=== PATIENT | female | born 1985 | race African-American/Black ===

== ENCOUNTER 2023-08-31 17:58 | Emergency (ER) | payer OTHER, SELFPAY ==
[2023-08-31 18:02] VITALS: BP 161/108
[2023-08-31 18:25] LABS: % Basophils 0.7 % (0-2); % Eosinophils 3.1 % (0-6); % Immature Granulocytes 0.5 % (0-0.5); % Lymphocytes 42.6 % (20.5-51.1); % Monocytes 5.4 % (1.7-9.3); % Neutrophils 47.7 % (42.2-75.2); Absolute Basophils 0.1 10^3/uL (0-0.2); Absolute Eosinophils 0.3 10^3/uL (0-0.7); Absolute Lymphocytes 3.5 10^3/uL (1.2-3.4); Absolute Monocytes 0.4 10^3/uL (0.1-0.6); Absolute Neutrophils 3.9 10^3/uL (1.4-6.5); Hematocrit 33.9 % (37.0-47.0); Hemoglobin 11.3 g/dL (12.0-16.0); Mean Corp Hgb Conc. 33.3 g/dL (33.0-37.0); Mean Corpuscular Hgb 28.1 pg (27.0-31.0); Mean Corpuscular Volume 84.3 fL (81.0-99.0); Mean Platelet Volume 9.1 fL (7.4-10.4); Nucleated Red Blood Cells % 0 %; Platelet Count 321 10^3/uL (130-400); Red Blood Cell Count 4.02 10^6/uL (4.20-5.40); Red Cell Dist. Width 15.1 % (11.5-14.5); White Blood Cell Count 8.2 10^3/uL (4.8-10.8)
[2023-08-31 18:26] VITALS: BP 147/63
[2023-08-31 18:38] LABS: Urine Albumin Negative (Neg - Trace); Urine Bilirubin Negative (Negative); Urine Character Clear (Clear); Urine Color Yellow; Urine Glucose Negative (Negative); Urine Ketone Negative (Negative); Urine Leukocyte Negative (Negative); Urine Nitrite Negative (Negative); Urine Occult Blood Negative (Negative); Urine Urobilinogen Negative (Neg - 1+); Urine pH 6.5 (5.0-9.0)
[2023-08-31 18:40] LABS: HCG, Urine Qualitative Screen Positive
[2023-08-31 19:00] VITALS: BP 123/87
[2023-08-31] MEDS: NSS 1000 IV (19:27)
[2023-08-31] MEDS: TYLENOL 1000 MG PO (19:27)
[2023-08-31 19:50] LABS: ALT (SGPT) 14 U/L (0-35); AST (SGOT) 20 U/L (14-36); Albumin 4.3 g/dl (3.5-5.0); Alkaline Phosphatase 72 U/L (38-126); Blood Urea Nitrogen 12 mg/dl (7-17); Calcium 9.5 mg/dl (8.4-10.2); Carbon Dioxide 21 mmol/L (22-30); Chloride 104 mmol/L (98-107); Glucose 86 mg/dl (70-99); HCG, Serum Qualitative Screen Positive; Potassium 4.1 mmol/L (3.5-5.1); Sodium 136 mmol/L (135-145); Total Bilirubin 0.2 mg/dl (0.2-1.3); Total Protein 7.5 g/dl (6.3-8.2); eGFR > 60.00
[2023-08-31 20:00] VITALS: BP 121/82
[2023-08-31 20:02] VITALS: BP 121/82
[2023-08-31 21:00] VITALS: BP 126/81
--- NOTE | 2023-08-31 22:41 | ED.GENMED ---
History of Present Illness
General
Chief Complaint: Problems
Source: patient
Time Seen by Provider: 08/31/23 18:33
Nursing documentation reviewed up to this point in time: agreed with
History of Present Illness
History of Present Illness:
Patient to ED with complaint of elevated BP readings at work today. States she was not feeling well so she asked nurse at work to check BP. States readings were high but she does not recall numbers. Brought self to ED for eval. She is 6 weeks
. . Denies any abdominal cramping, bleeding.
Past History
Past History
ED Past Medical History: HTN (reports high blood pressure years ago but meds were discontinued)
ED Past Surgical History: None
Review of Systems
Review of Systems
Allergies reviewed?: Yes
All Other Systems: ROS reviewed and negative except as documented in HPI and ROS
Constitutional: Reports no symptoms
EENT: Reports no symptoms
Respiratory: Reports no symptoms
Cardiac: Reports no symptoms
ABD/GI: Reports no symptoms
: Reports no symptoms
Musculoskeletal: Reports no symptoms
Skin: Reports no symptoms
Neurological: Reports weakness
Psychiatric: Reports no symptoms
Phy Exam
General Physical Exam
General Presentation: well appearing and no apparent distress
General age: appears stated age
General Skin: warm and dry
General Habitus: normal
General Mental: alert
Cardiovascular Exam
Cardiovascular Exam: regular rate/rhythm and no edema
Musculoskeletal Exam
Musculoskeletal Exam: full ROM and neuro vasc intact
Skin Exam
Skin Exam: normal color, warm/dry and no rash
Psychiatric Exam
Psychiatric Exam: normal mood/affect
Course
Orders/Labs/Results
Orders:
Orders
08/31/23 18:07
Test Result ONCE
08/31/23 18:17
Complete Blood Count/With Diff Urgent
07/23/24 18:30
HCG, Urine Qualitative Screen Urgent
Date Specimen was Collected: 08/31/23
Time Specimen was Collected: 18:12
Comment: ADD ON
Urinalysis Reflex To Culture Urgent
Date Specimen was Collected: 08/31/23
Time Specimen was Collected: 18:12
08/31/23 19:09
Add On- LAB Urgent
Tests Added?: HCG quantitative
08/31/23 19:10
Acetaminophen [Tylenol] 1,000 mg PO NOW STA
08/31/23 19:11
0.9% Sodium Chloride 1000 ml [Nss] 1,000 ml IV BOLUS
08/31/23 19:20
Beta HCG Quantitative Urgent
Is this a screen?: No
Comment: ADD ON
Comprehensive Metabolic Panel Urgent
HCG, Serum Qualitative Screen Urgent
Abnormal Lab Results
08/31/23 08/31/23
18:17 19:20
RBC 4.02 L 10^6/uL
(4.20-5.40)
Hgb 11.3 L g/dL
(12.0-16.0)
Hct 33.9 L %
(37.0-47.0)
RDW 15.1 H %
(11.5-14.5)
Absolute Lymphs (auto) 3.5 H 10^3/uL
(1.2-3.4)
Carbon Dioxide 21 L mmol/L
(22-30)
08/31/23 18:17
08/31/23 19:20
Vital Signs
Initial and Last Documented VS:
Initial Vital Signs
Temp Pulse Resp BP Pulse Ox
99.9 F 99 18 161/108 98
08/31/23 18:02 08/31/23 18:02 08/31/23 18:02 08/31/23 18:02 08/31/23 18:02
Last Documented Vital Signs
Temp Pulse Resp BP Pulse Ox
99.9 F 74 24 126/81 98
08/31/23 18:02 08/31/23 21:00 08/31/23 21:00 08/31/23 21:00 08/31/23 20:02
Information
Weeks gestation: Weeks: (6)
Location: N/A
*Critical Care Note
Total Time (30-74mins, 75-104mins- exclusive of procedures): Not Applicable
Update Note
Update Note:
No elevated readings while in ED. She will continue to track at home and then follow closely with PCP and OB. She is discharged home. Given instructions on s/s to return to ED and she is agreeable to plan
ED Attending Note
-
Portions of this chart may have been created with voice recognition software.� Occasional wrong word or��sound alike� substitutions may have occurred due to the inherent limitations of voice recognition software.
Discharge Plan
Departure
Patient Disposition: Home (Routine Discharge)
Date of Disposition: 08/31/23
Time of Disposition: 21:23
Patient with high blood pressure during this ER visit?: No
Condition: Good
Covid-19: Not Applicable
Discharge Problem:
Blood pressure check
Instructions: BLOOD PRESSURE
Referrals:
UNKNOWN - PT DOES,NOT KNOW [Family Provider] -
Activity Restrictions/Additional Instructions:
Follow up with your family doctor.
Interventions
Interventions:
*Risk Screen - Suicide Last Done: 08/31/23 18:27
*General Assessment Last Done: 08/31/23 18:27
*Neglect/Abuse Screening Last Done: 08/31/23 18:27
ED- Fall Risk Assessment Last Done: 08/31/23 18:27
*ED COVID-19 Vaccine History Last Done: 08/31/23 18:27
*Nursing Disposition Last Done: 08/31/23 21:50
ED-Female Genitourinary Assessment Last Done: 08/31/23 18:27
Discharge Date and Time
Discharge Date/Time: 08/31/23 21:50
Print Language: [id number]
== END 2023-08-31 21:50 | disposition home or self-care (01) ==
LOC: EMR 17:58
PROVIDERS: EMERGENCY PHYSICIAN Emergency Medicine; REFERRING PHYSICIAN Advanced Practice Midwife
DX: O16.1 Unspecified maternal hypertension, first trimester (principal); Z3A.01 Less than 8 weeks gestation of pregnancy
CPT/HCPCS: 99283; 96360; 96361; 80053; 81003; 81025; 84702; 84703; 85025